=== PATIENT | male | born 2000 | race Two or more races ===

== ENCOUNTER → 2020-01-09 | Outpatient (CLI) | payer OTHER ==
--- NOTE | 2020-01-09 08:38 | KCIC ---
TESTICULAR/SCROTUM History: Lump left testicle. Comparison: None. Technique: Multiple grayscale, color flow Doppler and Doppler spectral analysis images of the scrotum are obtained. Findings: Right testicle measures 4 x 2.7 x 1.9 cm. Right testicle demonstrates normal parenchymal echogenicity. The right epididymis is unremarkable. Left testicle measures 4.5 x 2.8 x 1.9 cm. Left testicle demonstrates normal parenchymal echogenicity. The left epididymis is unremarkable. The left epididymis is within the region of the patient's palpable abnormality. There is no hydrocele or varicocele. No scrotal hyperemia or swelling. Doppler imaging demonstrates normal flow to both testicles, without evidence of torsion. IMPRESSION: 1. Unremarkable testicular ultrasound. Electronically signed by: Jose Gandhi DO (01/09/2020 8:35 AM) [id number]
== END ==
LOC: KCIC US 07:48
PROVIDERS: ATTEND Nurse Practitioner Gerontology
DX: N50.89 Other specified disorders of the male genital organs (principal)
CPT/HCPCS: 76870